=== PATIENT | male | born 1955 | race Caucasian/White ===

== ENCOUNTER 2016-12-18 11:26 | Emergency (ER) | payer BC ==
[~2016-12-18] VITALS: Ht 180.3 cm; Wt 77.1 kg
[2016-12-18] MEDS ORDERED: ASPIRIN325 MG PO (12:03)
== END 2016-12-18 13:05 | disposition short-term general hospital (02) ==
LOC: ER 11:26
DX: R07.89 Other chest pain (principal); Z79.82 Long term (current) use of aspirin; Z79.899 Other long term (current) drug therapy